=== PATIENT | male | born 1990 | race Caucasian/White ===

== ENCOUNTER 2016-05-31 07:46 | Emergency (ER) | payer MEDICAID ==
[2016-05-31] MEDS ORDERED: ONDANSETRON 4 MG VIAL ONE (08:00)
[2016-05-31] MEDS ORDERED: SODIUM CHLORIDE 0.9% 1,000 ML ONE (08:00)
[2016-05-31] MEDS ORDERED: KETOROLAC 30 MG/ML VIAL ONE (08:00)
== END 2016-05-31 10:09 | disposition home or self-care (01) ==
LOC: ER 07:46
DX: J06.9 Acute upper respiratory infection, unspecified (principal); J02.9 Acute pharyngitis, unspecified; R11.2 Nausea with vomiting, unspecified
CPT/HCPCS: 36415; 74022; 80053; 83690; 85025; 86403; 87804; 87880; 96361; 96374; 96375